=== PATIENT | male | born 1995 | race Hispanic/Latino ===

== ENCOUNTER 2018-11-20 09:48 | Emergency (ER) | payer OTHER ==
[2018-11-20 11:45] VITALS: BP 122/86
== END 2018-11-20 11:45 | disposition home or self-care (01) | DRG 605 ==
LOC: ED 09:48
PROC: 0HQEXZZ Repair Left Lower Arm Skin, External Approach (ICD-10-PCS; principal; 2018-11-20)
DX: S51.812A Laceration without foreign body of left forearm, initial encounter (principal); W31.1XXA Contact with metalworking machines, initial encounter; Y93.89 Activity, other specified; Y99.0 Civilian activity done for income or pay

== ENCOUNTER 2018-11-23 13:01 | Emergency (ER) | payer OTHER ==
[~2018-11-23] VITALS: Ht 172.7 cm; Wt 70.0 kg
[2018-11-23 14:04] VITALS: BP 127/71
== END 2018-11-23 14:04 | disposition home or self-care (01) | DRG 950 ==
LOC: ED 13:01
DX: S51.812D Laceration without foreign body of left forearm, subsequent encounter (principal); X58.XXXD Exposure to other specified factors, subsequent encounter

== ENCOUNTER 2018-12-07 17:15 | Emergency (ER) | payer OTHER ==
[~2018-12-07] VITALS: Ht 172.7 cm; Wt 68.0 kg
[2018-12-07 18:10] VITALS: BP 130/83
== END 2018-12-07 18:10 | disposition home or self-care (01) | DRG 950 ==
LOC: ED 17:15
DX: S51.812D Laceration without foreign body of left forearm, subsequent encounter (principal); X58.XXXD Exposure to other specified factors, subsequent encounter